=== PATIENT | male | born 1970 | race Asian ===

== ENCOUNTER 2016-05-17 19:26 | Emergency (ER) | payer MEDICARE ==
[~2016-05-17] VITALS: Ht 185.4 cm; Wt 86.2 kg
[2016-05-17 19:40] VITALS: BP 135/74; PULSE 77; RESP 16; TEMP 97.7; O2SAT 98
--- NOTE | 2016-05-17 21:30 | NUR ---
Patient to ER bed 04 by triage nurse to gown for evaluation. Side rails up.
--- NOTE | 2016-05-17 21:35 | NUR ---
Pt brought by partner,A&Ox4, pt c/o R thigh and upper leg pain 06/15 since yesterday, taking ibuprofen with no relieve, pt is ambulatory, pedal pulses equal and strong, skin pink and warm.
--- NOTE | 2016-05-17 22:30 | NUR ---
Dr Guerrero at bedside examining patient
--- NOTE | 2016-05-17 22:34 | NUR ---
Jose morales in [facility] - 05/17/16 at 2257 by [email or web address] Cooling measures started due to fever 101.6
--- NOTE | 2016-05-17 22:38 | NUR ---
Jose morales in [facility] - 05/17/16 at 2256 by [email or web address] Cooling measures started due to fever 101.6
--- NOTE | 2016-05-17 22:55 | NUR ---
Report given to Xu GROSS.
--- NOTE | 2016-05-17 23:00 | NUR ---
Pt refused X ray. Wants pain medication and to be discharged. Dr. Guerrero made aware.
[2016-05-17 23:11] VITALS: BP 130/70; PULSE 75; RESP 16; TEMP 97.7; O2SAT 98
--- NOTE | 2016-05-17 23:11 | NUR ---
Patient given written and verbal discharge instructions and verbalizes understanding. ER MD discussed with patient the results and treatment provided. Patient in stable condition. ID arm band removed. Rx of flexeril, tylenol with codeine, and ibuprofen given. Patient educated on pain management and to follow up with PMD. Pain Scale 2/10. Opportunity for questions provided and answered.
== END 2016-05-17 23:11 | disposition home or self-care (01) ==
LOC: SED 19:26
DX: S39.011A Strain of muscle, fascia and tendon of abdomen, initial encounter (principal); X58.XXXA Exposure to other specified factors, initial encounter; Y93.89 Activity, other specified; Y92.89 Other specified places as the place of occurrence of the external cause; Y99.8 Other external cause status
CPT/HCPCS: 99283